=== PATIENT | male | born 2000 | race Caucasian/White ===

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

== ENCOUNTER 2018-09-04 21:42 | Emergency (ER) | payer OTHER ==
[2018-09-04 22:00] VITALS: BP 159/88; PULSE 75; TEMP 98.1; BMI 25.2
[2018-09-05] MEDS ORDERED: IBUPROFEN 600 MG TABLET (FP) PO ONE ×2 (00:13→00:17)
[2018-09-05] MEDS ORDERED: CEPHALEXIN MONOHYDRATE 500 MG CAPSULE (UD) PO ONE (00:27)
[2018-09-05] MEDS ORDERED: SULFAMETHOXAZOLE/TRIMETHOPRIM 800MG/160MG D.S. TABLET PO ONE (00:27)
[2018-09-05] MEDS ORDERED: SULFAMETHOXAZOLE/TRIMETHOPRIM 800MG/160MG D.S. TABLET ONE (00:34)
[2018-09-05] MEDS ORDERED: CEPHALEXIN MONOHYDRATE 500 MG CAPSULE (UD) ONE (00:35)
--- NOTE | 2018-09-05 01:08 | PDOC ---
History of Present Illness - General Chief Complaint: Edema Stated Complaint: NECK PAIN/SWELLING Time Seen by Provider: 09/04/18 23:36 History Source: Patient Exam Limitations: No Limitations Past History - Past Medical History Allergies/Adverse Reactions: Allergies Allergy/AdvReac Type Severity Reaction Status Date / Time No Known Allergies Allergy Verified 09/04/18 23:27 Home Medications: Ambulatory Orders Cephalexin [Keflex] 500 mg PO BID #14 capsule 09/05/18 COPD: No - Immunization History Immunization Up to Date: Yes - Suicide/Smoking/Psychosocial Hx Smoking History: Never smoked Have you smoked in the past 12 months: No Hx Alcohol Use: No Drug/Substance Use Hx: No Substance Use Type: None *Physical Exam - Vital Signs Last Vital Signs Temp Pulse Resp BP Pulse Ox 98.1 F 75 20 159/88 100 09/04/18 21:58 09/04/18 21:58 09/04/18 21:58 09/04/18 21:58 09/04/18 21:58 - Physical Exam General Appearance: No: Apparent Distress Respiratory/Chest: positive: Lungs Clear, Normal Breath Sounds. negative: Respiratory Distress Cardiovascular: positive: Regular Rhythm, Regular Rate, S1, S2. negative: Murmur Extremity: positive: Other (along R anterior/lateral neck, noted with around 1 cm cyst, no active drainage, unable to express drainage, with surrounding erythema) Integumentary: negative: Rash, Swelling, Ecchymosis, Bruising Neurologic: positive: Alert, Normal Mood/Affect ED Treatment Course - Medications Given in the ED: ED Medications Discontinued Medications Generic Name Dose Route Start Last Admin Trade Name Freq PRN Reason Stop Dose Admin Cephalexin HCl 500 mg 09/05/18 00:27 09/05/18 00:37 Keflex - PO 09/05/18 00:28 500 mg ONCE ONE Administration Ibuprofen 600 mg 09/05/18 00:13 09/05/18 00:19 Motrin - PO 09/05/18 00:14 600 mg ONCE ONE Administration Trimethoprim/Sulfamethoxazole 1 each 09/05/18 00:27 09/05/18 00:39 Bactrim Ds - PO 09/05/18 00:28 Not Given ONCE ONE Medical Decision Making - Medical Decision Making 18 y/o M with no sig pmh presents with infection along R side of neck. States he noticed a little redness along neck last night and this morning, he saw a pimple there. He tried popping it, but was unsuccessful. Later noticed the site grew larger. Endorses subjective fever and chills. Did not take any antipyretics today. Exam with likely infected pimple/cyst Too small to perform I&D D/W Dr. Porras - recommends only Keflex for now 09/05/18 01:09 *DC/Admit/Observation/Transfer Diagnosis at time of Disposition: Cyst - Discharge Dispostion Disposition: HOME Condition at time of disposition: Decision to Admit order: No - Prescriptions Prescriptions: Cephalexin [Keflex] 500 mg PO BID #14 capsule - Referrals - Patient Instructions Additional Instructions: Thank you for choosing [facility]. It was a pleasure taking care of you. You may take Motrin 600 mg every 6 hours by mouth as needed for mild to moderate pain. Take Motrin with food. Take the antibiotics as prescribed You may apply warm compresses to the site Avoid picking at site Return in 2 days for wound check Return to the Emergency Department if your symptoms worsen or persist, you have fever, streaking, increased swelling/redness or other concerning symptoms. - Post Discharge Activity
== END 2018-09-05 01:25 | disposition home or self-care (01) ==
LOC: JERFT 21:42 → JER 21:42
DX: L72.8 Other follicular cysts of the skin and subcutaneous tissue (principal)
CPT/HCPCS: 99282-25